=== PATIENT | male | born 1980 | race African-American/Black ===

== ENCOUNTER 2022-05-14 11:57 | Emergency (ER) | payer OTHER, SELFPAY ==
--- NOTE | ~2022-05-14 | CT_ITS ---
EXAMINATION: CT soft tissue neck w con DATE: 05/14/2022 14:04 INDICATION: Neck pain after trauma TECHNIQUE: Computed tomography (CT) of the neck was performed with 75 mL Omnipaque-300 intravenous co ntrast. The dose-length product was 481.90 mGy-cm. Automated exposure control and iterative reconstru ction technique were employed. COMPARISON: None FINDINGS: No intracranial abnormality is seen. The mucosal and parapharyngeal spaces are well. Epiglo ttis and area epiglottic folds are normal. No significant airway narrowing. Thyroid gland is unremark able. No significant cervical lymphadenopathy. The carotid arteries are unremarkable. No cervical lym phadenopathy. Lung apices are normal. No acute osseous abnormality. Vertebral body heights are mainta ined. No evidence for subluxation or fracture. There is mucosal thickening of the maxillary and the e thmoid sinuses. IMPRESSION: 1. No acute abnormality of the neck. Reviewed, dictated and finalized at location A.
[2022-05-14 12:41] VITALS: BP 127/89; PULSE 68; RESP 16; TEMP 36.6; O2SAT 98
--- NOTE | 2022-05-14 12:52 | ED.GENADULT ---
HPI - General Adult General Chief complaint: Unspecified Stated complaint: throat problem Time Seen by Provider: 05/14/22 12:25 History of Present Illness HPI narrative: 42-year-old male presents the emergency room for evaluation of a sore throat. Patient states that he needed to sneeze, so he held his nose. The increased pressure caused him to feel a popping sensation left side of his neck. Patient is now complaining of difficulty swallowing, and moving his neck to the left. Related Data Allergies Allergy/AdvReac Type Severity Reaction Status Date / Time No Known Allergies Allergy Verified 05/14/22 13:01 Review of Systems Review of Systems: CONSTITUTIONAL: Denies fever, chills, or sweats. EYES: Denies visual changes, redness, or discharge. ENT: Reports sore throat CARDIOVASCULAR: Denies chest pain, palpitations, or edema. RESPIRATORY: Denies cough or dyspnea. GASTROINTESTINAL: Denies abdominal pain, nausea, vomiting, or diarrhea. GENITOURINARY: Denies dysuria or hematuria. SKIN: Denies rash or itching. MUSCULOSKELETAL: Reports neck pain NEUROLOGIC: Denies headache, numbness, dizziness, or weakness. PSYCHIATRIC: Denies anxiety or depression. Exam Narrative: GENERAL: Well-appearing, well-nourished, no physical limitations, and in no acute distress. HEAD: Normocephalic, atraumatic. EYES: Conjunctivae normal, PERRLA and EOMI. ENT: External nose normal, Nares clear, no rhinorrhea or epistaxis. Mucous membranes moist. Oropharynx without tonsillar hypertrophy exudate or other lesions. External ears normal, bilateral TMs normal bilaterally NECK: Supple. No meningeal signs. No adenopathy or masses. Tenderness to the superior aspect of the left sternocleidomastoid muscle; no ecchymosis or soft tissue swelling noted CHEST: Clear to auscultation. No respiratory distress. No wheezes rales or rhonchi. No tenderness. HEART: Regular rate and rhythm. No murmur heard. Normal peripheral pulses. BACK: No CVA tenderness; full range of motion cervical spine, step-offs, bony abnormality; FROM EXTREMITIES: Normal range of motion. No edema. No clubbing or cyanosis SKIN: Warm, dry, no rash. No noted wounds NEURO: No focal deficits. Alert and oriented x3. MAEW. CN's II-XI intact bilaterally, normal gait PSYCH: Cooperative. Normal mood and affect. Course Vital Signs Vital signs: Vital Signs Temperature 36.6 C 05/14/22 12:41 Pulse Rate 68 05/14/22 12:41 Respiratory Rate 16 05/14/22 12:41 Blood Pressure 127/89 05/14/22 12:41 Pulse Oximetry 98 05/14/22 12:41 Temperature 36.6 C 05/14/22 12:41 Pulse Rate 62 05/14/22 14:16 Respiratory Rate 14 05/14/22 14:16 Blood Pressure 137/94 H 05/14/22 14:16 Pulse Oximetry 100 05/14/22 14:16 Medical Decision Making Vital Signs Vital Signs: Vital Signs Temperature 36.6 C 05/14/22 12:41 Pulse Rate 68 05/14/22 12:41 Respiratory Rate 16 05/14/22 12:41 Blood Pressure 127/89 05/14/22 12:41 Pulse Oximetry 98 05/14/22 12:41 Temperature 36.6 C 05/14/22 12:41 Pulse Rate 62 05/14/22 14:16 Respiratory Rate 14 05/14/22 14:16 Blood Pressure 137/94 H 05/14/22 14:16 Pulse Oximetry 100 05/14/22 14:16 Lab Data Result diagrams: 05/14/22 13:08 Labs: Lab Results 05/14/22 Range/Units 13:08 Sodium 137 (137-145) mmol/L Potassium 4.1 (3.4-5.0) mmol/L Chloride 108 H (98-107) mmol/L Carbon Dioxide 23 (22-30) mmol/L Anion Gap 6 L (8-16) mmol/L BUN 14 (9-20) mg/dL Creatinine 0.90 (0.7-1.3) mg/dL Estim Creat Clear Calc 111 ml/min Estimated GFR > 60 (59 - ) Glucose 84 (65-110) mg/dL Calcium 8.5 (8.4-10.2) mg/dL Total Bilirubin 0.5 (0.2-1.3) mg/dL AST 26 (17-59) U/L ALT 18 (6-50) U/L Alkaline Phosphatase 64 (38-126) U/L Total Protein 7.0 (6.3-8.2) g/dL Albumin 4.3 (3.5-5.1) g/dL Discharge Plan Discharge Clinical Impression: Acute neck pain Patient Dispos
[2022-05-14] MEDS: SODIUM CHLORIDE 0.9% IV 1,000 ML 999 ML IV CONT (13:06)
[2022-05-14 13:43] LABS: Alanine Aminotransferase 18 U/L (6-50); Albumin Level 4.3 g/dL (3.5-5.1); Alkaline Phosphatase 64 U/L (38-126); Anion Gap 6 mmol/L (8-16); Aspartate Amino Transferase 26 U/L (17-59); Bilirubin,Total 0.5 mg/dL (0.2-1.3); Blood Urea Nitrogen 14 mg/dL (9-20); Calcium 8.5 mg/dL (8.4-10.2); Carbon Dioxide 23 mmol/L (22-30); Chloride 108 mmol/L (98-107); Estimated CRCL calculation 111 ml/min; Estimated Glomerular Filt Rate > 60; Glucose 84 mg/dL (65-110); Potassium 4.1 mmol/L (3.4-5.0); Sodium 137 mmol/L (137-145)
[2022-05-14 14:16] VITALS: BP 137/94; PULSE 62; RESP 14; O2SAT 100
== END 2022-05-14 14:55 | disposition home or self-care (01) ==
PROVIDERS: Emergency Provider Nurse Practitioner Family
DX: M54.2 Cervicalgia (principal)
CPT/HCPCS: 36415; 70491; 80053; 96361; 96374; 99284; J1100; J7030; Q9967